=== PATIENT | female | born 1985 | race Caucasian/White ===

== ENCOUNTER 2019-08-01 17:18 | Emergency (ER) | payer OTHER, SELFPAY ==
--- NOTE | 2019-08-01 17:52 | DI.RAD.S_ITS ---
PROCEDURE: XR CHEST 1V INDICATIONS: chest pain TECHNIQUE: One view of the chest was acquired. COMPARISON: None. FINDINGS: Surgical changes and devices: None. Lungs and pleura: Lungs are clear. No pleural effusions or pneumothorax. Mediastinum: Mediastinal contours appear normal. Heart size is normal. Bones and chest wall: No suspicious bony lesions. Overlying soft tissues appear unremarkable. IMPRESSION: No evidence acute pulmonary process. Dictated by: Juan Roberts M.D. on 08/01/2019 at 18:30 Approved by: Juan Roberts M.D. on 08/01/2019 at 18:30
[2019-08-01 18:00] VITALS: BP 120/92; PULSE 87; RESP 13; TEMP 36.8; O2SAT 100; BMI 25.3
[2019-08-01] MEDS: SODIUM CHLORIDE 0.9% 1,000 ML 150 ML IV (18:26)
[2019-08-01 18:29] LABS: Add Manual Diff / Slide Review NO; Basophils Absolute Auto 0 /uL (0-100); Basophils Percent Auto 0.4 % (0-2); Eosinophils Absolute Auto 200 /uL (0-450); Hematocrit 38.4 % (36-46); Hemoglobin 13.5 g/dL (12.0-16.0); Lymphocytes Absolute Auto 2100 /uL (1100-4500); Lymphocytes Percent Auto 30.9 % (25-40); Mean Corpuscular HGB Conc 35.1 % (30-36); Mean Corpuscular Hemoglobin 30.6 PG (26-34); Mean Corpuscular Volume 87.2 fL (80-100); Monocytes Absolute Auto 400 /uL (0-900); Monocytes Percent Auto 6.4 % (3-14); Neutrophils Absolute Auto 4100 /uL (1500-7000); Neutrophils Percent Auto 59.3 % (50-75); Platelet Count 221 X10^3/uL (150-400); Red Blood Cell Count 4.41 X10^6/uL (4.0-5.2); Red Cell Distribution Width 12.1 % (11.6-14.8); White Blood Cell Count 6.9 X10^3/uL (4.5-11.0)
--- NOTE | 2019-08-01 18:29 | ED_ITS ---
HPI - Neuro Symptoms/Deficit General Chief Complaint: Neuro Symptoms/Deficit Stated Complaint: had an abnormal EKG at [facility] sent here Time Seen by Provider: 08/01/19 17:52 Source: patient Mode of arrival: Family Vehicle Limitations: no limitations History of Present Illness HPI Narrative: 33F non smoker with benign medical history presents with chief complaint of a day's worth of right arm tingling. She denies any specific injury. She is not dizzy nor weak or lightheaded. She denies any other neurologic symptoms such as blurred vision, speech trouble or others. Onset (ago): hour(s) Location: right arm History of same: No Quality: tingling Relieving factors: none On Anticoagulants: No Treatments Prior to Arrival: none Related Data Allergies Allergy/AdvReac Type Severity Reaction Status Date / Time No Known Drug Allergies Allergy Verified 08/01/19 18:14 Review of Systems Constitutional Constitutional: Denies chills, Denies fatigue, Denies fever(s), Denies frequent falls, Denies lethargy and Denies weakness Eyes Eyes: Denies change in vision, Denies eye discharge, Denies irritation and Denies loss of vision ENT Ears, Nose, Mouth, and Throat: Denies change in voice, Denies dizziness, Denies neck pain, Denies sore throat and Denies throat swelling Cardiovascular Cardiovascular: Denies chest pain, Denies irregular heart rhythm, Denies lightheadedness, Denies palpitations, Denies dyspnea, Denies dyspnea on exertion and Denies orthopnea Respiratory Respiratory: Denies cough, Denies dyspnea, Denies dyspnea on exertion and Denies wheezing Gastrointestinal Gastrointestinal: Denies abdominal pain, Denies change in bowel habits, Denies diarrhea, Denies nausea and Denies vomiting Genitourinary Genitourinary: Denies hematuria, Denies flank pain, Denies urinary incontinence and Denies urinary urgency Musculoskeletal Musculoskeletal: Denies back pain, Denies muscle weakness, Denies neck pain, Denies numbness and Reports tingling Integumentary/Breasts Skin/Breast: Denies pruritus, Denies erythema, Denies rash and Denies wounds Neurologic Neurologic: Denies behavioral changes, Denies confusion, Denies dizziness, Denies frequent falls, Denies loss of vision, Denies numbness, Reports tingling and Denies weakness Psychiatric Psychiatric: Denies anxiety, Denies behavioral changes, Denies confusion, Denies depression, Denies homicidal ideation and Denies suicidal ideation Endocrine Endocrine: Denies fatigue, Denies flushing and Denies palpitations Hematologic/Lymphatic Hematologic/Lymphatic: Denies easy bruising Allergic/Immunologic Allergic/Immunologic: Denies urticaria, Denies throat swelling and Denies wheezing Patient History Social History Smoking Status: Never smoker alcohol intake frequency: 0-2 drinks per day Substance Use Type: does not use Exam Narrative Exam Narrative: GENERAL: [33] year old patient appears stated age. Well- nourished, well-developed patient, in mild distress. HEAD: Atraumatic. Normocephalic. EYES: Pupils equal round and reactive. Extraocular motions intact. No scleral icterus. No injection or drainage. ENT: Nose without bleeding, purulent drainage. Throat without erythema, tonsillar hypertrophy or exudate. Airway patent. NECK: Trachea midline. Non tender CARDIOVASCULAR: Regular rate and rhythm without murmurs, gallops, or rubs. RESPIRATORY: Clear to auscultation. Breath sounds equal bilaterally. No wheezes, rales, or rhonchi. GASTROINTESTINAL: Abdomen soft, non-tender, nondistended. EXTREMITIES: No edema or joint tenderness. BACK: Nontender without deformity or crepitance. No flank tenderness. NEURO: AOx3. SKIN: No rash or erythema of visible areas NIH Stroke Scale 1a. LOC: Patient is alert and keenly responsive (0) 1b. LOC Questions: Patient answers both LOC questions accurately (0) 1c. LOC Commands: Patient performs both tasks correctly (0) 2. Best Gaze: Normal (0) 3. Visual: No visual loss (0) 4. Facial palsy: Normal symmetrical movements (0) 5. Motor arm: No drift (0) 6. Motor leg: No drift (0) 7. Limb ataxia: Absent (0) 8. Sensory: Normal (0) 9. Best language: No aphasia; normal (0) 10. Dysarthria: Normal (0) 11. Extinction and inattention: No abnormality (0) NIHSS: 0 Initial Vital Signs Initial Vital Signs: Vital Signs Temperature 98.3 F 08/01/19 18:00 Pulse Rate 87 08/01/19 18:00 Respiratory Rate 13 08/01/19 18:00 Blood Pressure 120/92 H 08/01/19 18:00 Pulse Oximetry 100 08/01/19 18:00 Course Orders Ordered: Discontinued Medications Sodium Chloride (Normal Saline 0.9%) 1,000 mls @ 150 mls/hr IV CONT JAVI Last Infusion: 08/01/19 21:00 Dose: 0 mls/hr Documented by: Admin: 08/01/19 18:26 Dose: 150 mls/hr Documented by: SOFI Consultations Consultation #1: call to [facility] Cardiology to review case and inverted Ts in V1/V2. Given story and patient age this is thought to be normal variant. Vital Signs Vital signs: Vital Signs - 8 hr 08/01/19 18:00 Temperature 98.3 F Pulse Rate 87 Respiratory Rate 13 Blood Pressure 120/92 H Pulse Oximetry 100 MDM - Neuro Symptoms/Deficit Lab Data Result diagrams: 08/01/19 18:20 08/01/19 18:20 Labs: Lab Results 08/01/19 08/01/19 Range/Units 18:20 18:20 WBC 6.9 (4.5-11.0) X10^3/uL RBC 4.41 (4.0-5.2) X10^6/uL Hgb 13.5 (12.0-16.0) g/dL Hct 38.4 (36-46) % MCV 87.2 (80-100) fL MCH 30.6 (26-34) PG MCHC 35.1 (30-36) % RDW 12.1 (11.6-14.8) % Plt Count 221 (150-400) X10^3/uL Neut % (Auto) 59.3 (50-75) % Lymph % (Auto) 30.9 (25-40) % [place] % (Auto) 6.4 (3-14) % Eos % (Auto) 3.0 (2-4) % Baso % (Auto) 0.4 (0-2) % Neut # (Auto) 4100 (4897-9288) /uL Lymph # (Auto) 2100 (5641-1770) /uL [place] # (Auto) 400 (0-900) /uL Eos # (Auto) 200 (0-450) /uL Baso # (Auto) 0 (0-100) /uL Sodium 140 (137-145) mmol/L Potassium 3.7 (3.4-5.1) mmol/L Chloride 105 (98-107) mmol/L Carbon Dioxide 25 (22-32) mmol/L BUN 9 (7-17) mg/dL Creatinine 0.60 (0.52-1.04) mg/dL Estimated GFR > 60.0 (>60) mL/min BUN/Creatinine Ratio 15.0 (6-22) Glucose 101 H (70-100) mg/dL Calcium 8.8 (8.4-10.2) mg/dL Total Bilirubin 0.8 (0.2-1.3) mg/dL AST 25 (14-36) IU/L ALT 15 (<35) IU/L Alkaline Phosphatase 64 (38-126) U/L Total Creatine Kinase 212 H (30-135) U/L CK-MB (CK-2) 0.41 (<2.37) ng/mL CK-MB (CK-2) Rel Index 0.2 L (1.5-5.0) % Troponin I < 0.012 (0.01-0.034) ng/mL Total Protein 7.0 (6.3-8.2) g/dL Albumin 4.6 (3.5-5.0) g/dL Globulin 2.4 (1.7-4.1) g/dL Albumin/Globulin Ratio 1.9 (1.0-2.8) Lipase 49 (23-300) U/L Point of Care Testing Test Results Negative Urine Dip Bedside Urine Glucose Negative Bedside Urine Bilirubin - Negative Bedside Urine Ketone - Negative Urine Specific [place] 1.015 Bedside Urine Occult Blood +/- Bedside Urine pH 7.5 Bedside Urine Protein - Negative Bedside Urine Urobilinogen - Negative Bedside Urine Nitrite - Negative Bedside Urine Leukocytes - Negative Esterase MDM Narrative Medical decision making narrative: Multiple etiologies considered including cardiac, neurologic and musculoskeletal. Cardiac got less likely given lack of abnormal findings with a troponin, EKG or story. Neurologic thought less likely given normal NIH stroke scale and head CT. She does sit rather hunched over most days of the week for her job and likely has some musculoskeletal trouble causing paresthesia Discharge Plan Departure Patient Disposition: Home Clinical Impression: Paresthesia Discharge Date/Time: 08/01/19 21:05 Instructions: DI for Paraplegia Activity Restrictions/Additional Instructions: *You have been diagnosed with [right upper extremity paresthesia] *What to do: *Take medications as directed *Follow up with your primary care provider in 2-3 days, call for an appointment. Let them know you were seen in the Emergency Department and that we ask that you be seen in follow up *Return to ER if you should have any new, worsening or concerning symptoms
[2019-08-01 18:42] LABS: Alanine Aminotransferase 15 IU/L (<35); Albumin 4.6 g/dL (3.5-5.0); Albumin Globulin Ratio 1.9 (1.0-2.8); Alkaline Phosphatase 64 U/L (38-126); Aspartate Aminotransferase 25 IU/L (14-36); Bilirubin Total 0.8 mg/dL (0.2-1.3); Blood Urea Nitrogen 9 mg/dL (7-17); Calcium 8.8 mg/dL (8.4-10.2); Carbon Dioxide 25 mmol/L (22-32); Chloride 105 mmol/L (98-107); Creatine Kinase 212 U/L (30-135); Estimated Glomerular Filt Rate > 60.0 mL/min (>60); Globulin 2.4 g/dL (1.7-4.1); Glucose 101 mg/dL (70-100); HEMOLYSIS < 15 (0-50); Lipase 49 U/L (23-300); Potassium 3.7 mmol/L (3.4-5.1); Sodium 140 mmol/L (137-145)
[2019-08-01 18:53] LABS: Troponin I < 0.012 ng/mL (0.01-0.034)
--- NOTE | 2019-08-01 18:54 | DI.CT.S_ITS ---
PROCEDURE: CT HEAD/BRAIN WO CON INDICATIONS: neurologic symptoms, NOT TPA TECHNIQUE: Noncontrast 4.5 mm thick angled axial sections acquired from the foramen magnum to the vertex, with coronal and sagittal reformats. For radiation dose reduction, the following was used: automated exposure control, adjustment of mA and/or kV according to patient size. COMPARISON: None. FINDINGS: Image quality: Excellent. CSF spaces: Basal cisterns are patent. No extra-axial fluid collections. Ventricles are normal in size and shape. Brain: No midline shift. No intracranial masses or hemorrhage. Renee-white matter interface is normal. Skull and face: Calvarium and visualized facial bones are intact, without suspicious lesions. Sinuses: Visualized sinuses and mastoids are clear. IMPRESSION: Unremarkable head CT. No evidence of acute stroke, hemorrhage, or mass. Dictated by: Juan Roberts M.D. on 08/01/2019 at 19:26 Approved by: Juan Roberts M.D. on 08/01/2019 at 19:27
[2019-08-01 18:57] LABS: CKMB % Relative Index 0.2 % (1.5-5.0); Creatine Kinase MB 0.41 ng/mL (<2.37)
[2019-08-01 18:58] VITALS: BP 151/82; PULSE 68; O2SAT 100
== END 2019-08-01 21:05 | disposition home or self-care (01) ==
PROVIDERS: Emergency Medicine; Emergency Provider Emergency Medicine
DX: R20.2 Paresthesia of skin (principal); R94.31 Abnormal electrocardiogram [ECG] [EKG]
CPT/HCPCS: 36415; 70450; 71045; 80053; 81003; 81025; 82550; 82553; 83690; 84484; 85025; 93005; 96360; 96361; 99283; 99284

== ENCOUNTER 2024-12-01 23:14 | Emergency (ER) | payer OTHER, SELFPAY ==
[2024-12-01 23:47] VITALS: BP 132/85; PULSE 71; RESP 16; TEMP 37; O2SAT 99; BMI 19.5
--- NOTE | 2024-12-02 00:08 | DI.US.S_ITS ---
PROCEDURE: US PELVIC COMPLETE INDICATIONS: report miscarriage couple weeks ago, had not eval TECHNIQUE: Real-time scanning was performed of the pelvic organs, with image documentation. Additional endovaginal scanning was necessary due to incomplete visualization of the adnexal and endometrial structures by transabdominal scanning. COMPARISON: None. FINDINGS: Uterus: 9.6 x 5.2 x 6.2 cm. Mildly thickened endometrium measuring 18 mm with heterogeneity and increased vascularity. Ovaries: Nonenlarged bilaterally measuring 4 cc on the right and 6 cc on the left. Other: No pathologic free abdominal or pelvic fluid. IMPRESSION: Mildly thickened endometrium with heterogeneity and increased vascularity. Given reported history, a mild degree of retained products is possible. Nonenlarged ovaries. Dictated by: Michael Holbrook M.D. on 12/02/2024 at 1:30 Approved by: Michael Holbrook M.D. on 12/02/2024 at 1:31
[2024-12-02 00:44] LABS: Add Manual Diff / Slide Review NO; Basophils Absolute Auto 0 /uL (0-100); Basophils Percent Auto 0.7 % (0-2); Eosinophils Absolute Auto 200 /uL (0-450); Eosinophils Percent Auto 3.4 % (2-4); Hematocrit 26.8 % (36-46); Hemoglobin 9.3 g/dL (12.0-16.0); Lymphocytes Absolute Auto 1600 /uL (1100-4500); Lymphocytes Percent Auto 30.4 % (25-40); Mean Corpuscular HGB Conc 34.8 % (30-36); Mean Corpuscular Hemoglobin 31.6 PG (26-34); Mean Corpuscular Volume 90.6 fL (80-100); Monocytes Absolute Auto 300 /uL (0-900); Monocytes Percent Auto 5.6 % (3-14); Neutrophils Absolute Auto 3200 /uL (1500-7000); Neutrophils Percent Auto 59.9 % (50-75); Platelet Count 293 X10^3/uL (150-400); Red Blood Cell Count 2.96 X10^6/uL (4.0-5.2); Red Cell Distribution Width 13.5 % (11.6-14.8); White Blood Cell Count 5.3 X10^3/uL (4.5-11.0)
--- NOTE | 2024-12-02 00:55 | PC.NURSE ---
US now at bedside
[2024-12-02 00:58] LABS: Alanine Aminotransferase 32 IU/L (<35); Albumin 4.2 g/dL (3.5-5.0); Albumin Globulin Ratio 1.9 (1.0-2.8); Alkaline Phosphatase 35 U/L (38-126); Aspartate Aminotransferase 26 IU/L (14-36); BUN Creatinine Ratio 5.5 (6-22); Bilirubin Total 0.5 mg/dL (0.2-1.3); Blood Urea Nitrogen 4 mg/dL (7-17); Calcium 8.7 mg/dL (8.4-10.2); Carbon Dioxide 21 mmol/L (22-32); Chloride 106 mmol/L (98-107); Estimated Glomerular Filt Rate > 60 mL/min (>60); Globulin 2.2 g/dL (1.7-4.1); Glucose 86 mg/dL (70-100); HEMOLYSIS < 15 (0-50); Potassium 3.7 mmol/L (3.4-5.1); Sodium 140 mmol/L (137-145); Total Protein 6.4 g/dL (6.3-8.2)
[2024-12-02 01:35] LABS: HCG Quantitative /Beta subunit 153.44 mIU/mL
[2024-12-02 01:40] VITALS: PULSE 60; RESP 16; O2SAT 98
--- NOTE | 2024-12-02 02:11 | ED.FEMALEGU ---
HPI - Female Genitourinary General Chief complaint: Vaginal Bleeding Stated complaint: miscarried and still bleeding after 5 weeks Time Seen by Provider: 12/02/24 00:08 Source: patient and RN notes reviewed Mode of arrival: Ambulatory Limitations: no limitations History of Present Illness HPI Narrative: Patient is A3 female on Concerta who states about 5 weeks ago she thought she was about 6-8 weeks and had a miscarriage. Has had persistent bleeding which has been progressively worse with bright red large clots. States she has had a miscarriage before and was not this bad in terms of bleeding nor did it last as long. She states sometimes she will go through a pad an hour sometimes he will be little bit farther placed. She has been using pads and tampons. She was not appreciate any other discharge or foul odor. She denies fevers. Denies any abdominal or pelvic pain. Denies chest pain or shortness of breath. No nausea or vomiting. No she was with bowel movements or urination. Patient states she was felt a little bit lightheaded. She was not had any syncope. States concerned as her only daily medications. Prior deliveries or vaginally. No known drug allergies. No tobacco, occasional alcohol, no recreational drugs. Use to follow up with Gynecology on [facility] Related Data Allergies Allergy/AdvReac Type Severity Reaction Status Date / Time No Known Drug Allergies Allergy Verified 08/01/19 18:14 Review of Systems Review of Systems ROS Unobtainable: All systems reviewed & are unremarkable except as noted in HPI and below Exam Initial Vital Signs Initial Vital Signs: Vital Signs Temperature 98.6 F 12/01/24 23:47 Pulse Rate 71 12/01/24 23:47 Respiratory Rate 16 12/01/24 23:47 Blood Pressure 132/85 12/01/24 23:47 Pulse Oximetry 99 12/01/24 23:47 Oxygen Delivery Method Room Air 12/01/24 23:47 Course Orders Ordered: ED Orders 12/01/24 23:55 ABO RH Type Stat Complete Blood Count AUTO DIFF Stat Comprehensive Metabolic Panel Stat 12/02/24 00:08 US pelvic complete Stat 12/02/24 00:30 HCG Quantitative /Beta subunit Stat Vital Signs Vital signs: Vital Signs - 8 hr 12/01/24 23:47 12/02/24 01:40 12/02/24 02:34 Temperature 98.6 F Pulse Rate 71 60 76 Respiratory Rate 16 16 18 Blood Pressure 132/85 Pulse Oximetry 99 98 96 Oxygen Delivery Method Room Air Room Air Room Air MDM - Female Genitourinary Lab Data 12/02/24 00:30 12/02/24 00:30 Labs: Lab Results 12/02/24 Range/Units 00:30 WBC 5.3 (4.5-11.0) X10^3/uL RBC 2.96 L (4.0-5.2) X10^6/uL Hgb 9.3 L (12.0-16.0) g/dL Hct 26.8 L (36-46) % MCV 90.6 (80-100) fL MCH 31.6 (26-34) PG MCHC 34.8 (30-36) % RDW 13.5 (11.6-14.8) % Plt Count 293 (150-400) X10^3/uL Neut % (Auto) 59.9 (50-75) % Lymph % (Auto) 30.4 (25-40) % [place] % (Auto) 5.6 (3-14) % Eos % (Auto) 3.4 (2-4) % Baso % (Auto) 0.7 (0-2) % Neut # (Auto) 3200 (2007-8549) /uL Lymph # (Auto) 1600 (9428-5280) /uL [place] # (Auto) 300 (0-900) /uL Eos # (Auto) 200 (0-450) /uL Baso # (Auto) 0 (0-100) /uL Sodium 140 (137-145) mmol/L Potassium 3.7 (3.4-5.1) mmol/L Chloride 106 (98-107) mmol/L Carbon Dioxide 21 L (22-32) mmol/L BUN 4 L (7-17) mg/dL Creatinine 0.73 (0.52-1.04) mg/dL Estimated GFR > 60 (>60) mL/min BUN/Creatinine Ratio 5.5 L (6-22) Glucose 86 (70-100) mg/dL Calcium 8.7 (8.4-10.2) mg/dL Total Bilirubin 0.5 (0.2-1.3) mg/dL AST 26 (14-36) IU/L ALT 32 (<35) IU/L Alkaline Phosphatase 35 L (38-126) U/L Total Protein 6.4 (6.3-8.2) g/dL Albumin 4.2 (3.5-5.0) g/dL Globulin 2.2 (1.7-4.1) g/dL Albumin/Globulin Ratio 1.9 (1.0-2.8) HCG, Quant 153.44 mIU/mL Blood Type O Positive MDM Narrative Medical decision making narrative: 39-year-old female with persistent bleeding for the past 4-5 weeks she was not tachycardic and not hypotensive no hypoxia. She is anemic and dropped from prior hemoglobin although prior was in 2019. Labs show white count of 5.3 hemoglobin of 9.3 she was 13.5 and 2019 none for comparison in the interim, platelets are 293. Electrolytes are appropriate except for a CO2 of 21 BUN of 4 creatinine 0.73 glucose is 86 alk-phos is 35 otherwise normal LFTs, hCG quantitative is 153. Patient was O positive. Does not require rhogam. Ultrasound shows mildly thickened endometrium with heterogeneity increased vascularity given history mild degree of retained products possible nonenlarged ovaries. Pathologic free abdominal or pelvic fluid. Spoke with Dr. Foster continuous process coffee roaster for cardiology technologist, patient appears to be pretty hemodynamically stable. Discussed with patient she feels comfortable with returning home and following up shortly for evaluation and potentially D and C. We did review patient's anemic but heart rates in the 60s patient is very well-appearing. Has not has a large amount of bleeding here in the department. Spoke patient she feels comfortable with the plan. Short term follow up, she will call 1st thing in the morning to set up follow up. Discussed she can return at any time if she was feeling worse or having an increase in bleeding. Discharge Plan Departure Patient Disposition: Home Clinical Impression: Miscarriage, Vaginal bleeding Activity Restrictions/Additional Instructions: Call later this morning to set up follow up with flavorer. They will see to evaluate you to if you may need a D&C versus other treatment. Your labs do show you are anemic, your hemoglobin today is 9.3, this is lower than your priors but your last labs I have available were from 2019. Please return you are having worsening symptoms, increasing bleeding, fevers, new abdominal back or flank pain, any passing out, chest pain or shortness of breath, vomiting or other new or concerning changes. Referrals: Rosalind Foster MD [Physician] - Stand Alone Forms: Patient Portal/API/Survey
[2024-12-02 02:34] VITALS: PULSE 76; RESP 18; O2SAT 96
== END 2024-12-02 02:36 | disposition home or self-care (01) ==
PROVIDERS: Emergency Provider Emergency Medicine
DX: O03.9 Complete or unspecified spontaneous abortion without complication (principal); N93.8 Other specified abnormal uterine and vaginal bleeding
CPT/HCPCS: 36415; 76830; 76856; 80053; 84702; 85025; 86900; 86901; 99283; 99284